=== PATIENT | male | born 1980 | race American Indian/Alaskan Native ===

== ENCOUNTER 2019-10-04 10:57 | Observation (INO) | payer MEDICAID, OTHER ==
[2019-10-04] MEDS ORDERED: Sodium Chloride 0.9% 10 ML Syringe FLUSH PRN (11:02)
[2019-10-04 11:38] LABS: ANION GAP 11.5 mEq/L (7-13)
--- NOTE | 2019-10-04 11:49 | CR ---
EXAMINATION: Chest 2V SEX: Male AGE: 39 years CLINICAL HISTORY: 39-year-old male complaining of shortness of breath (SOB). Comparison CT 15 September 2018. INTERPRETATION: 1. Chronic prominence of cardiac silhouette and proximal pulmonary vascularity unchanged. 2. No new cephalization of flow, alveolar edema or dependent pleural effusion when compared to August 2018 exam. No interstitial Aiden B lines. 3. No new lung mass or hilar lymphadenopathy. 4. No focal lobar pneumonia, atelectasis or collapse. 5. No pneumothorax or pneumomediastinum. Midline tracheal bronchial airway unremarkable. CONCLUSION: No acute new cardiopulmonary abnormality.
[2019-10-04] MEDS ORDERED: cloNIDine 0.1 MG Tab PO ONE (12:16)
--- NOTE | 2019-10-04 12:38 | EDM.PDOC ---
ED HPI GENERAL MEDICAL PROBLEM - General Chief Complaint: Cardiovascular Problem Stated Complaint: ALTRU SENDING OVER Time Seen by Provider: 10/04/19 11:35 Source of Information: Reports: Patient, Provider (Dr. Donaldson), RN, RN Notes Reviewed History Limitations: Reports: No Limitations - History of Present Illness INITIAL COMMENTS - FREE TEXT/NARRATIVE: Patient presents to ER from [facility] with complaint of shortness of breath and elevated troponin at the clinic. Patient states he has been having difficulties with shortness of breath on and off since May of last year. States he gets a cough from time to time, and feels very short of breath at those times. Denies any recent illness, denies any heart problems. Admits to hypertension. Denies lung problems that he is aware of, denies diabetes. Patient denies any recent exposure to COVID-19, states he goes to work and home, and stays away from people mostly. Patient was seen in the clinic on September 26, a nd followed up again today. Blood pressure elevated today 180s over 120s to 130s. Patient was given a Catapres in the clinic which was unsuccessful. Denies any chest pains, nausea, vomiting, diarrhea, fever or chills. Onset: Gradual Treatments LINING IRONER: Reports: Other (see below) Other Treatments LINING IRONER: clonidine, lasix - Related Data Allergies Allergy/AdvReac Type Severity Reaction Status Date / Time No Known Allergies Allergy Verified 10/04/19 11:14 Home Meds: Home Meds Albuterol [Proair HFA] 2 puff INH Q4HR PRN 10/04/19 [History] Furosemide [Lasix] 20 mg PO DAILY 10/04/19 [History] Lisinopril/Hydrochlorothiazide [Zestoretic 10-12.5 mg Tablet] 1 tab PO DAILY 10/04/19 [History] Past Medical History Cardiovascular History: Reports: Hypertension Social & Family History - Family History Family Medical History: Noncontributory - Tobacco Use Smoking Status *Q: Former Smoker Used Tobacco, but Quit: Yes Month/Year Tobacco Last Used: 2019 - Caffeine Use Caffeine Use: Reports: Soda - Recreational Drug Use Recreational Drug Use: No ED ROS GENERAL - Review of Systems Review Of Systems: Comprehensive ROS is negative, except as noted in HPI. ED EXAM, GENERAL - Physical Exam Exam: See Below Exam Limited By: No Limitations General Appearance: Alert, WD/WN, No Apparent Distress Eye Exam: Bilateral Eye: EOMI, Normal Inspection Ears: Normal External Exam, Hearing Grossly Normal Nose: Normal Inspection Throat/Mouth: Normal Inspection, Normal Voice, No Airway Compromise Head: Atraumatic, Normocephalic Neck: Normal Inspection, Supple, Non-Tender, Full Range of Motion Respiratory/Chest: No Accessory Muscle Use, Chest Non-Tender, Decreased Breath Sounds, Crackles, Rhonchi Cardiovascular: Normal Peripheral Pulses, Regular Rate, Rhythm, No Edema, No Gallop, No JVD, No Murmur, No Rub Peripheral Pulses: 2+: Radial (L), Radial (R) GI/Abdominal: Normal Bowel Sounds, Soft, Non-Tender (Male) Exam: Deferred Rectal (Males) Exam: Deferred Back Exam: Normal Inspection, Full Range of Motion, NT Extremities: Normal Inspection, Normal Range of Motion, Non-Tender, Normal Capillary Refill, No Pedal Edema Neurological: Alert, Oriented, CN II-XII Intact, Normal Cognition, Normal Gait, Normal Reflexes, No Motor/Sensory Deficits Psychiatric: Normal Affect, Normal Mood Skin Exam: Warm, Dry, Intact, Normal Color, No Rash Lymphatic: No Adenopathy Course - Vital Signs Last Recorded V/S: Last Vital Signs Temp 99 F 10/04/19 11:09 Pulse 92 10/04/19 11:09 Resp 20 10/04/19 11:09 BP 170/121 H 10/04/19 12:26 Pulse Ox 98 10/04/19 11:09 - Orders/Labs/Meds Orders: Active Orders 24 hr Category Date Time Status Admission Diagnosis [ADT] Stat ADT 10/04/19 13:09 Ordered Admission Status [Patient Status] [ADT] Routine ADT 10/04/19 13:09 Active EKG 12 Lead [EKG Documentation Completion] [RC] STAT Care 10/04/19 11:05 Active EKG Documentation Completion [RC] STAT Care 10/04/19 11:02 Active Peripheral IV Care [RC] . DIRECTED Care 10/04/19 11:05 Active Sodium Chloride 0.9% [Saline Flush] Med 10/04/19 11:02 Active 10 ml FLUSH ASDIRECTED PRN Peripheral IV Insertion Adult [OM.PC] Stat Oth 10/04/19 11:02 Ordered Medication Orders Sodium Chloride (Saline Flush) 10 ml FLUSH ASDIRECTED PRN PRN Reason: Keep Vein Open Last Admin: 10/04/19 11:05 Dose: 10 ml Documented by: JAYLENE Labs: Laboratory Tests 10/04/19 10/04/19 10/04/19 Range/Units 11:07 11:07 11:24 D-Dimer, Quantitative < 100 (0-400) ng/mL Sodium 142 (136-145) mmol/L Potassium 3.5 (3.5-5.1) mmol/L Chloride 104 (98-107) mmol/L Carbon Dioxide 30 (21-32) mmol/L Anion Gap 11.5 (7-13) mEq/L BUN 23 H (7-18) mg/dL Creatinine 1.39 H (0.70-1.30) mg/dL Est Cr Clr Drug Dosing 77.54 mL/min Estimated GFR (MDRD) 57 BUN/Creatinine Ratio 16.5 (No establ ref range) Glucose 103 H (74-99) mg/dL Calcium 8.7 (8.5-10.1) mg/dL Total Bilirubin 0.8 (0.2-1.0) mg/dL AST 39 H (15-37) U/L ALT 72 H (16-63) U/L Alkaline Phosphatase 63 (46-116) U/L Troponin I 0.100 H* (0.000-0.056) ng/mL B-Natriuretic Peptide Cancelled Total Protein 7.7 (6.4-8.2) g/dL Albumin 3.9 (3.4-5.0) g/dL Globulin 3.8 Albumin/Globulin Ratio 1.0 Urine Color Yellow (YELLOW) Urine Appearance Clear (CLEAR) Urine pH 6.0 (5.0-9.0) Ur Specific [place] 1.020 (1.005-1.030) Urine Protein Negative (NEGATIVE) Urine Glucose (UA) Negative (NEGATIVE) Urine Ketones Negative (NEGATIVE) Urine Occult Blood Negative (NEGATIVE) Urine Nitrite Negative (NEGATIVE) Urine Bilirubin Negative (NEGATIVE) Urine Urobilinogen 0.2 (0.2-1.0) mg/dL Ur Leukocyte Esterase Negative (NEGATIVE) Meds: Medications Generic Name Dose Route Start Last Admin Trade Name Freq PRN Reason Stop Dose Admin Sodium Chloride 10 ml 10/04/19 11:02 10/04/19 11:05 Saline Flush FLUSH 10 ml ASDIRECTED PRN Administration Keep Vein Open Discontinued Medications Generic Name Dose Route Start Last Admin Trade Name Freq PRN Reason Stop Dose Admin Clonidine HCl 0.1 mg 10/04/19 12:16 10/04/19 12:26 Catapres PO 10/04/19 12:17 0.1 mg ONETIME ONE Administration Labetalol HCl 20 mg 10/04/19 12:57 10/04/19 13:06 Normodyne IVPUSH 10/04/19 12:58 20 mg ONETIME ONE Administration - Radiology Interpretation Free Text/Narrative:: Chest xray: No acute new cardiopulmonary abnormality See rad report - Re-Assessments/Exams Free Text/Narrative Re-Assessment/Exam: 10/04/19 12:58 Dr. Florence here to evaluate the patient. 10/04/19 13:11 Dr. Florence agreed to admit the patient for observation. Departure - Departure Time of Disposition: 13:14 Disposition: Refer to Observation Reason for Transfer *Q: Other Condition: Fair Clinical Impression: Hypertensive heart disease Qualifiers: Heart failure presence: unspecified whether heart failure present Qualified Code(s): I11.9 - Hypertensive heart disease without heart failure Forms: ED Department Discharge Sepsis Event Note (ED) - Evaluation Sepsis Screening Result: No Definite Risk - Focused Exam Vital Signs: Vital Signs Temp Pulse Resp BP BP Pulse Ox 10/04/19 12:26 170/121 H 10/04/19 11:09 99 F 92 20 187/134 H 98 - My Orders Last 24 Hours: My Active Orders 10/04/19 11:02 EKG Documentation Completion [RC] STAT Sodium Chloride 0.9% [Saline Flush] 10 ml FLUSH ASDIRECTED PRN Peripheral IV Insertion Adult [OM.PC] Stat 10/04/19 11:05 EKG 12 Lead [EKG Documentation Completion] [RC] STAT Peripheral IV Care [RC] . DIRECTED 10/04/19 13:09 Admission Diagnosis [ADT] Stat Admission Status [Patient Status] [ADT] Routine - Assessment/Plan Last 24 Hours: My Active Orders 10/04/19 11:02 EKG Documentation Completion [RC] STAT Sodium Chloride 0.9% [Saline Flush] 10 ml FLUSH ASDIRECTED PRN Peripheral IV Insertion Adult [OM.PC] Stat 10/04/19 11:05 EKG 12 Lead [EKG Documentation Completion] [RC] STAT Peripheral IV Care [RC] . DIRECTED 10/04/19 13:09 Admission Diagnosis [ADT] Stat Admission Status [Patient Status] [ADT] Routine
[2019-10-04] MEDS ORDERED: Labetalol 20 MG/4 ML Syringe IVPUSH ONE (12:57)
[2019-10-04] MEDS ORDERED: Aspirin 81 MG Tab.Chew PO ONE (13:34)
[2019-10-04] MEDS ORDERED: Labetalol 20 MG/4 ML Syringe IVPUSH PRN (13:37)
[2019-10-04] MEDS ORDERED: Heparin Sodium/0.45% NaCl 25,000 UNITS/500 ML BAG IV SCH (13:45)
[2019-10-04] MEDS ORDERED: Docusate Sodium 100 MG Cap PO PRN (13:55)
[2019-10-04] MEDS ORDERED: Ondansetron 4 MG/2 ML SDV IVPUSH PRN (13:55)
[2019-10-04] MEDS ORDERED: oxyCODONE 5 MG Tab PO PRN (13:55)
--- NOTE | 2019-10-04 14:00 | PCM.HP ---
H&P History of Present Illness - General Date of Service: 10/04/19 Admit Problem/Dx: Admission Diagnosis/Problem Admission Diagnosis/Problem Hypertension Source of Information: Patient, Provider (ER) - History of Present Illness Initial Comments - Free Text/Narative: 39-year-old with a history of hypertension. The patient has not been checking his blood pressures lately. Has been on hydrochlorothiazide and DELFIN inhibitor. He has been experiencing episodes of shortness of breath mostly related to activity. Associated with coughing some wheezing. He continues to be a smoker. Prior workup included a CAT scan August 2018 that was described as reactive airway disease with small mediastinal lymph node and granulomatous disease. In the past steroid has helped him. The patient was seen in the clinic a week ago. Chest x-ray was described as CHF Lasix was given. Was diagnosed with reactive airway disease and Medrol dosepak was given. On the day of admission the patient went for follow-up at the clinic. Continue to have symptoms. The troponin was checked and was found to be slightly elevated at 0.13 which is in the indeterminate range. Blood pressure was 177/123 with a heart rate of 104 and the patient was referred to the emergency room. Received clonidine, labetalol in the emergency room Chest Xray is described as no acute cardiopulmonary abnormality - Related Data Allergies/Adverse Reactions: Allergies Allergy/AdvReac Type Severity Reaction Status Date / Time No Known Allergies Allergy Verified 10/04/19 13:32 Home Medications: Home Meds Albuterol [Proair HFA] 2 puff INH Q4HR PRN 10/04/19 [History] Furosemide [Lasix] 20 mg PO DAILY 10/04/19 [History] Lisinopril/Hydrochlorothiazide [Zestoretic 10-12.5 mg Tablet] 1 tab PO DAILY 10/04/19 [History] Past Medical History Cardiovascular History: Reports: Hypertension Respiratory History: Reports: Sleep Apnea, SOB Psychiatric History: Reports: Addiction - Infectious Disease History Infectious Disease History: Reports: None - Past Surgical History Cardiovascular Surgical History: Reports: None Respiratory Surgical History: Reports: None Social & Family History - Family History Family Medical History: Noncontributory - Tobacco Use Smoking Status *Q: Former Smoker Years of Tobacco use: 15 Packs/Tins Daily: 0.5 Used Tobacco, but Quit: Yes Month/Year Tobacco Last Used: August 2019 Second Hand Smoke Exposure: No - Caffeine Use Caffeine Use: Reports: Coffee, Soda, Tea - Recreational Drug Use Recreational Drug Use: No H&P Review of Systems - Review of Systems: Review Of Systems: See Below General: Denies: Fever, Chills Pulmonary: Reports: Shortness of Breath, Wheezing (With activity weeks ago) Cardiovascular: Reports: Chest Pain ("Left sided muscle spasms under the chest, lasting for seconds"). Denies: Edema Gastrointestinal: Denies: Abdominal Pain Genitourinary: Denies: Dysuria, Frequency Musculoskeletal: Denies: Neck Pain Psychiatric: Denies: Confusion Exam - Exam Exam: See Below - Vital Signs Vital Signs: Last Vital Signs Temp 99 F 10/04/19 11:09 Pulse 92 10/04/19 11:09 Resp 20 10/04/19 11:09 BP 170/121 H 10/04/19 12:26 Pulse Ox 98 10/04/19 11:09 Weight: 264 lb 9.6 oz - Exam General: Alert, Oriented Neck: Supple Lungs: Clear to Auscultation, Normal Respiratory Effort Cardiovascular: Regular Rate, Regular Rhythm GI/Abdominal Exam: Normal Bowel Sounds, Soft, Non-Tender Extremities: No Pedal Edema Neuro Extensive - Mental Status: Alert, Oriented x3 - Patient Data Lab Results Last 24 hrs: Laboratory Results - last 24 hr 10/04/19 10/04/19 10/04/19 Range/Units 11:07 11:07 11:24 D-Dimer, Quantitative < 100 (0-400) ng/mL Sodium 142 (136-145) mmol/L Potassium 3.5 (3.5-5.1) mmol/L Chloride 104 (98-107) mmol/L Carbon Dioxide 30 (21-32) mmol/L Anion Gap 11.5 (7-13) mEq/L BUN 23 H (7-18) mg/dL Creatinine 1.39 H (0.70-1.30) mg/dL Est Cr Clr Drug Dosing 77.54 mL/min Estimated GFR (MDRD) 57 BUN/Creatinine Ratio 16.5 (No establ ref range) Glucose 103 H (74-99) mg/dL Calcium 8.7 (8.5-10.1) mg/dL Total Bilirubin 0.8 (0.2-1.0) mg/dL AST 39 H (15-37) U/L ALT 72 H (16-63) U/L Alkaline Phosphatase 63 (46-116) U/L Troponin I 0.100 H* (0.000-0.056) ng/mL B-Natriuretic Peptide Cancelled Total Protein 7.7 (6.4-8.2) g/dL Albumin 3.9 (3.4-5.0) g/dL Globulin 3.8 Albumin/Globulin Ratio 1.0 Urine Color Yellow (YELLOW) Urine Appearance Clear (CLEAR) Urine pH 6.0 (5.0-9.0) Ur Specific [place] 1.020 (1.005-1.030) Urine Protein Negative (NEGATIVE) Urine Glucose (UA) Negative (NEGATIVE) Urine Ketones Negative (NEGATIVE) Urine Occult Blood Negative (NEGATIVE) Urine Nitrite Negative (NEGATIVE) Urine Bilirubin Negative (NEGATIVE) Urine Urobilinogen 0.2 (0.2-1.0) mg/dL Ur Leukocyte Esterase Negative (NEGATIVE) Result Diagrams: 10/04/19 11:07 EKG INTERPRETATION EKG Date: 10/04/19 Rhythm: NSR EKG Interpretation Comments: small lateral ST depression - Problem List (1) Hypertensive urgency SNOMED Code(s): 821933608 ICD Code: I16.0 - HYPERTENSIVE URGENCY Status: Acute Current Visit: Yes (2) Hypertensive heart disease SNOMED Code(s): 20440596 ICD Code: I11.9 - HYPERTENSIVE HEART DISEASE WITHOUT HEART FAILURE Status: Acute Current Visit: Yes Qualifiers: Heart failure presence: unspecified whether heart failure present Qualified Code(s): I11.9 - Hypertensive heart disease without heart failure Problem List Initiated/Reviewed/Updated: Yes Orders Last 24hrs: Active Orders 24 hr Category Date Time Status Admission Diagnosis [ADT] Stat ADT 10/04/19 13:09 Ordered Admission Status [Patient Status] [ADT] Routine ADT 10/04/19 13:09 Active Antiembolic Devices [RC] PER UNIT ROUTINE Care 10/04/19 13:56 Ordered EKG 12 Lead [EKG Documentation Completion] [RC] STAT Care 10/04/19 11:05 Active EKG Documentation Completion [RC] STAT Care 10/04/19 11:02 Active Oxygen Therapy [RC] PRN Care 10/04/19 13:55 Ordered Peripheral IV Care [RC] . DIRECTED Care 10/04/19 11:05 Active Telemetry Monitoring [Cardiac Monitoring] [RC] . Care 10/04/19 13:39 Active DIRECTED Up to Chair [RC] ASDIRECTED Care 10/04/19 13:55 Ordered VTE/DVT Education [RC] PER UNIT ROUTINE Care 10/04/19 13:55 Ordered Vital Signs [RC] Q4H Care 10/04/19 13:55 Ordered 2 Gram Sodium Diet [DIET] Diet 10/04/19 Dinner Ordered Echo Comp wo Cont [US] Routine Exams 10/04/19 13:40 Ordered BASIC METABOLIC PANEL,BMP [CHEM] AM Lab 10/05/19 05:15 Ordered CBC WITH AUTO DIFF [HEME] AM Lab 10/05/19 05:15 Ordered LIPID PANEL [CHEM] AM Lab 10/05/19 05:11 Ordered TROPONIN I [CHEM] AM Lab 10/05/19 05:11 Ordered TROPONIN I [CHEM] Timed Lab 10/04/19 16:00 Ordered TROPONIN I [CHEM] Timed Lab 10/04/19 22:00 Ordered Acetaminophen [Tylenol] Med 10/04/19 13:55 Ordered 650 mg PO Q4H PRN Aspirin Med 10/05/19 08:00 Active 325 mg PO WITHBREAKFAST Docusate Sodium [Colace] Med 10/04/19 13:55 Ordered 100 mg PO BID PRN Heparin Sodium/0.45% NaCl [Heparin 25,000 Units in 1/2 Med 10/04/19 13:45 Ordered NS 500 ML] 25,000 units in 500 ml IV TITRATE Isosorbide Mononitrate [Imdur] Med 10/04/19 13:35 Ordered 30 mg PO ACBREAKFAST Labetalol [Normodyne] Med 10/04/19 13:37 Ordered 20 mg IVPUSH Q4H PRN Metoprolol Tartrate [Lopressor] Med 10/04/19 13:45 Ordered 25 mg PO Q12H Ondansetron [Zofran] Med 10/04/19 13:55 Ordered 4 mg IVPUSH Q4H PRN Sodium Chloride 0.9% [Saline Flush] Med 10/04/19 11:02 Active 10 ml FLUSH ASDIRECTED PRN Sodium Chloride 0.9% [Saline Flush] Med 10/04/19 13:55 Ordered 10 ml FLUSH ASDIRECTED PRN Zolpidem [Ambien] Med 10/04/19 13:55 Ordered 5 mg PO BEDTIME PRN oxyCODONE Med 10/04/19 13:55 Ordered 5 mg PO Q4H PRN Antiembolic Hose [OM.PC] Per Unit Routine Ot 10/04/19 13:55 Ordered Peripheral IV Insertion Adult [OM.PC] Stat Ot 10/04/19 11:02 Ordered Saline Lock Insert [OM.PC] Routine Oth 10/04/19 13:55 Ordered Resuscitation Status Routine Resus Stat 10/04/19 13:55 Ordered Medication Orders Aspirin (Aspirin) 325 mg PO WITHBREAKFAST DWAINE Heparin Sodium/Sodium Chloride (Heparin 25,000 Units In 1/2 Ns 500 Ml) 25,000 units in 500 mls @ 28.805 mls/hr IV TITRATE DWAINE; Protocol Isosorbide Mononitrate (Imdur) 30 mg PO ACBREAKFAST DWAINE Labetalol HCl (Normodyne) 20 mg IVPUSH Q4H PRN PRN Reason: Hypertension Metoprolol Tartrate (Lopressor) 25 mg PO Q12H DWAINE Sodium Chloride (Saline Flush) 10 ml FLUSH ASDIRECTED PRN PRN Reason: Keep Vein Open Last Admin: 10/04/19 11:05 Dose: 10 ml Documented by: JAYLENE Assessment/Plan Comment:: 39-year-old with a history of hypertension. The patient has not been checking his blood pressures lately. Has been on hydrochlorothiazide and DELFIN inhibitor. He has been experiencing episodes of shortness of breath mostly related to activity. Associated with coughing some wheezing. He continues to be a smoker. Prior workup included a CAT scan August 2018 that was described as reactive airway disease with small mediastinal lymph node and granulomatous disease. In the past steroid has helped him. The patient was seen in the clinic a week ago. Chest x-ray was described as CHF Lasix was given. Was diagnosed with reactive airway disease and Medrol dosepak was given. On the day of admission the patient went for follow-up at the clinic. Continue to have symptoms. The troponin was checked and was found to be slightly elevated at 0.13 which is in the indeterminate range. Blood pressure was 177/123 with a heart rate of 104 and the patient was referred to the emergency room. Received clonidine, labetalol in the emergency room Chest Xray is described as no acute cardiopulmonary abnormality Hypertensive urgency With history of hypertension Blood pressure 170s over 130s Troponin elevated Symptomatic shortness of breath Well monitor on telemetry Give further labetalol as needed Start imdur, metoprolol Elevated troponin Likely related to uncontrolled hypertension Well monitor troponins Monitor telemetry Control blood pressure Start aspirin Start heparin weight-based nomogram Obtain echocardiogram Obtain lipid study Will need follow-up with cardiology DVT prophylaxis with heparin weight is nomogram
[2019-10-04] MEDS: Isosorbide Mononitrate 30 MG Tab.ER PO SCH (14:28)
[2019-10-04] MEDS: Metoprolol Tartrate 25 MG Tab PO SCH (14:29)
[2019-10-04] MEDS: Sodium Chloride 0.9% 10 ML Syringe FLUSH PRN (14:31)
[2019-10-04] MEDS ORDERED: Zolpidem 5 MG Tab PO PRN (21:00)
[2019-10-04] MEDS ORDERED: Heparin Sodium 5,000 Units/ML Vial IVPUSH ONE (21:26)
[2019-10-04] MEDS: Acetaminophen 325 MG Tab PO PRN (22:10)
[2019-10-05] MEDS: Metoprolol Tartrate 25 MG Tab PO SCH ×2 (02:22→13:07)
[2019-10-05] MEDS ORDERED: Heparin Sodium 5,000 Units/ML Vial IVPUSH ONE (05:12)
[2019-10-05] MEDS: Isosorbide Mononitrate 30 MG Tab.ER PO SCH (05:59)
[2019-10-05] MEDS ORDERED: Isosorbide Mononitrate 30 MG Tab.ER PO SCH (06:00)
[2019-10-05 07:19] LABS: ANION GAP 9.8 mEq/L (7-13)
[2019-10-05] MEDS: Aspirin 325 MG Tab PO SCH (07:59)
--- NOTE | 2019-10-05 10:55 | PN ---
DATE: 10/05/2019 SUBJECTIVE: Mr. Silvina Alicia is a 39-year-old male with medical history significant for hypertension, admitted to the hospital with complaints of increasing shortness of breath and noted to be in acute congestive heart failure. For the last 24 hours, the patient claims that his symptoms seems to be improved. His blood pressure also improved. Denies any chest pains. No abdominal pain. No nausea. No vomiting. No diarrhea. PHYSICAL EXAMINATION: Vital Signs: Temperature of 97.6, pulse of 76, blood pressure of 132/67, respiratory rate of 19, saturating at 99%. General Appearance: The patient is alert and oriented to time, place, and person. Follows commands spontaneously. Cardiovascular System: S1, S2 heard with normal intensity. No gallops. Respiratory System: Clear to auscultation bilaterally. No wheeze. Mild crepitations at the base. Abdomen: Soft. Bowel sounds positive. Nontender. No rigidity. Extremities: No edema in bilateral lower extremities. Neurology: No gross focal neurological deficit. MEDICATIONS: Medications reviewed. Continue with aspirin 325 mg daily, heparin IV drip, Imdur 30 mg daily, metoprolol 25 mg q.12 hourly, oxycodone every 4 hours as needed for pain. LABORATORY DATA: WBC 12.9, hemoglobin 16.8, hematocrit 51.2, platelet count 186. Sodium 139, potassium 3.8, chloride 102, bicarb 31, BUN 26, creatinine 1.4, troponin 0.056. HDL cholesterol 31, LDL cholesterol 73. ASSESSMENT: 1. Acute congestive heart failure secondary to systolic dysfunction. 2. Hypertensive urgency. PLAN: 1. Acute congestive heart failure. The patient has been increasingly short of breath in the last few weeks. The patient will be started on oral Lasix. The patient had an echocardiogram which shows evidence of decreased ejection fraction of 30% to 35% and also noted to have severe apical hypokinesis with no thrombus suggestive of established apical infarction, probably subacute. The patient denies any ongoing chest pains. We will continue with mild diuresis at this time. 2. Hypertensive urgency. His blood pressure seems to be improved. He is started on Imdur and metoprolol. He is tolerating the medications well. We will further titrate the medication to optimize his blood pressure. 3. Elevated troponins. The patient troponin seems to be trending down at this time. The patient denies any ongoing chest pain. He would benefit from Cardiology consultation as an outpatient and get further evaluation. We will continue with aspirin for now. 4. DVT prophylaxis. We will switch him to subcu Lovenox at this time. We will discontinue the IV heparin drip. [facility] /[id number]
[2019-10-05] MEDS: Acetaminophen 325 MG Tab PO PRN (16:31)
[2019-10-05] MEDS: Sodium Chloride 0.9% 10 ML Syringe FLUSH PRN (20:32)
[2019-10-06] MEDS: Metoprolol Tartrate 25 MG Tab PO SCH (02:06)
[2019-10-06] MEDS: Isosorbide Mononitrate 30 MG Tab.ER PO SCH (06:08)
[2019-10-06] MEDS: Aspirin 325 MG Tab PO SCH (08:39)
[2019-10-06] MEDS ORDERED: Enoxaparin 40 MG/0.4 ML Syringe SUBCUT SCH (09:00)
[2019-10-06] MEDS ORDERED: Carvedilol 6.25 MG Tab PO SCH (09:00)
[2019-10-06 09:51] LABS: ANION GAP 11.3 mEq/L (7-13)
[2019-10-06] MEDS ORDERED: guaiFENesin 100 MG/5 ML Soln 5 ML UD Cup PO PRN (10:00)
--- NOTE | 2019-10-06 10:08 | PCM.DCSUM1 ---
Discharge Summary - Hospital Course Free Text/Narrative:: 39-year-old with a history of hypertension. The patient has not been checking his blood pressures lately. Has been on hydrochlorothiazide and MARTIN inhibitor. He has been experiencing episodes of shortness of breath mostly related to activity. Associated with coughing some wheezing. He continues to be a smoker. Prior workup included a CAT scan August 2018 that was described as reactive airway disease with small mediastinal lymph node and granulomatous disease. In the past steroid has helped him. The patient was seen in the clinic a week ago. Chest x-ray was described as CHF Lasix was given. Was diagnosed with reactive airway disease and Medrol dosepak was given. On the day of admission the patient went for follow-up at the clinic. Continue to have symptoms. The troponin was checked and was found to be slightly elevated at 0.13 which is in the indeterminate range. Blood pressure was 177/123 with a heart rate of 104 and the patient was referred to the emergency room. Received clonidine, labetalol in the emergency room Chest Xray is described as no acute cardiopulmonary abnormality Hypertensive urgency With history of hypertension Blood pressure 170s over 130s improved with IV labetalol controlled with PO regimen Acute systolic chf possible etiology: h/o viral syndrome last year - sob since Troponin minimally elevated - downtrending ECHO: EF 30-35%, with apical wall motion abnormality cont Martin started coreg, asa started lasik, Kdur stop HCTZ Lipid: LDL: 73 - for now hold off on Statin - unless CAD is shown on Cath appt made to f/up with cardiology reactive airway dx. is also possible f/up with pulm testing after card evals Diagnosis: Stroke: No - Discharge Data Discharge Date: 10/06/19 Discharge Disposition: Home, Self-Care 01 Condition: Good - Referral to Home Health Primary Care Physician: PCP None - Discharge Diagnosis/Problem(s) (1) Hypertensive urgency SNOMED Code(s): 650117877 ICD Code: I16.0 - HYPERTENSIVE URGENCY Status: Acute Current Visit: Yes (2) Hypertensive heart disease SNOMED Code(s): 94912001 ICD Code: I11.9 - HYPERTENSIVE HEART DISEASE WITHOUT HEART FAILURE Status: Acute Current Visit: Yes Qualifiers: Heart failure presence: unspecified whether heart failure present Qualified Code(s): I11.9 - Hypertensive heart disease without heart failure (3) Acute systolic (congestive) heart failure SNOMED Code(s): 952687037, 716446309 ICD Code: I50.21 - ACUTE SYSTOLIC (CONGESTIVE) HEART FAILURE Status: Acute Current Visit: Yes - Patient Instructions Diet: Heart Healthy Diet Activity: As Tolerated - Discharge Plan *PRESCRIPTION DRUG MONITORING PROGRAM REVIEWED*: Not Applicable *COPY OF PRESCRIPTION DRUG MONITORING REPORT IN PATIENT ESTHER: Not Applicable Prescriptions/Med Rec: Aspirin 81 mg PO WITHBREAKFAST #30 tablet carvediloL [Coreg] 6.25 mg PO BIDMEALS #60 tablet Potassium Chloride [K-Tab] 10 meq PO DAILY #30 tablet.er lisinopriL [Prinivil] 10 mg PO DAILY #30 tablet Home Medications: Home Meds Albuterol [Proair HFA] 2 puff INH Q4HR PRN 10/04/19 [History] Furosemide [Lasix] 20 mg PO DAILY 10/04/19 [History] Aspirin 81 mg PO WITHBREAKFAST #30 tablet 10/06/19 [Rx] Potassium Chloride [K-Tab] 10 meq PO DAILY #30 tablet.er 10/06/19 [Rx] carvediloL [Coreg] 6.25 mg PO BIDMEALS #60 tablet 10/06/19 [Rx] guaiFENesin [Robitussin] 100 mg PO Q6H PRN cup 10/06/19 [Rx] lisinopriL [Prinivil] 10 mg PO DAILY #30 tablet 10/06/19 [Rx] Oxygen Therapy Mode: Room Air Forms: ED Department Discharge Referrals: PCP,None [Primary Care Provider] - - Discharge Summary/Plan Comment DC Time >30 min.: No - General Info Date of Service: 10/06/19 Subjective Update: Shortness of breath is much better No associated swelling No chest pain. Has been ambulating well. On no oxygen - Review of Systems General: Denies: Fever, Weakness Pulmonary: Reports: Cough. Denies: Shortness of Breath Cardiovascular: Denies: Chest Pain, Edema Gastrointestinal: Denies: Abdominal Pain Neurological: Denies: Confusion - Patient Data Vitals - Most Recent: Last Vital Signs Temp 97.3 F 10/06/19 07:53 Pulse 72 10/06/19 08:47 Resp 16 10/06/19 07:53 BP 136/84 10/06/19 08:47 Pulse Ox 97 10/06/19 07:53 Weight - Most Recent: 263 lb 4.8 oz I&O - Last 24 hours: Intake & Output 10/05/19 10/06/19 10/06/19 22:59 06:59 14:59 Intake Total 120 300 230 Balance 120 300 230 Lab Results - Last 24 hrs: Laboratory Results - last 24 hr 10/05/19 10/06/19 Range/Units 14:08 09:15 APTT 24.1 (22.0-34.0) SEC Sodium 138 (136-145) mmol/L Potassium 4.3 (3.5-5.1) mmol/L Chloride 101 (98-107) mmol/L Carbon Dioxide 30 (21-32) mmol/L Anion Gap 11.3 (7-13) mEq/L BUN 23 H (7-18) mg/dL Creatinine 1.37 H (0.70-1.30) mg/dL Est Cr Clr Drug Dosing 78.67 mL/min Estimated GFR (MDRD) 58 Glucose 104 H (74-99) mg/dL Calcium 9.3 (8.5-10.1) mg/dL Med Orders - Current: Current Medications Acetaminophen (Tylenol) 650 mg PO Q4H PRN PRN Reason: Pain (Mild 1-3)/fever Last Admin: 10/05/19 16:31 Dose: 650 mg Documented by: Aspirin (Aspirin) 325 mg PO WITHBREAKFAST [facility] Last Admin: 10/06/19 08:39 Dose: 325 mg Documented by: Carvedilol (Coreg) 6.25 mg PO BIDMEALS [facility] Last Admin: 10/06/19 08:47 Dose: 6.25 mg Documented by: Docusate Sodium (Colace) 100 mg PO BID PRN PRN Reason: Constipation Enoxaparin Sodium (Lovenox) 40 mg SUBCUT DAILY [facility] Last Admin: 10/06/19 08:39 Dose: Not Given Documented by: Guaifenesin (Robitussin) 100 mg PO Q6H PRN PRN Reason: Cough Labetalol HCl (Normodyne) 20 mg IVPUSH Q4H PRN PRN Reason: Hypertension Lisinopril (Prinivil) 10 mg PO DAILY [facility] Ondansetron HCl (Zofran) 4 mg IVPUSH Q4H PRN PRN Reason: Nausea/Vomiting Oxycodone HCl (Oxycodone) 5 mg PO Q4H PRN PRN Reason: Pain (moderate 4-6) Sodium Chloride (Saline Flush) 10 ml FLUSH ASDIRECTED PRN PRN Reason: Keep Vein Open Last Admin: 10/05/19 20:32 Dose: 10 ml Documented by: Zolpidem Tartrate (Ambien) 5 mg PO BEDTIME PRN PRN Reason: Sleep Last Admin: 10/04/19 22:10 Dose: 5 mg Documented by: Discontinued Medications Aspirin (Aspirin) 324 mg PO ONETIME ONE Stop: 10/04/19 13:35 Last Admin: 10/04/19 14:27 Dose: 324 mg Documented by: Clonidine HCl (Catapres) 0.1 mg PO ONETIME ONE Stop: 10/04/19 12:17 Last Admin: 10/04/19 12:26 Dose: 0.1 mg Documented by: Heparin Sodium (Porcine) (Heparin Sodium) 2,000 units IVPUSH .BOLUS ONE Stop: 10/04/19 21:27 Last Admin: 10/04/19 21:45 Dose: 2,000 units Documented by: Heparin Sodium (Porcine) (Heparin Sodium) 2,000 units IVPUSH ONETIME ONE Stop: 10/05/19 05:13 Last Admin: 10/05/19 05:55 Dose: 2,000 units Documented by: Heparin Sodium/Sodium Chloride (Heparin 25,000 Units In 1/2 Ns 500 Ml) 25,000 units in 500 mls @ 20 mls/hr IV TITRATE DWAINE; Protocol Last Titration: 10/05/19 10:43 Dose: 26.2 mls/hr, 26.2 mls/hr Documented by: Isosorbide Mononitrate (Imdur) 30 mg PO ACBREAKFAST DWAINE Isosorbide Mononitrate (Imdur) 30 mg PO ACBREAKFAST DWAINE Last Admin: 10/06/19 06:08 Dose: 30 mg Documented by: Labetalol HCl (Normodyne) 20 mg IVPUSH ONETIME ONE Stop: 10/04/19 12:58 Last Admin: 10/04/19 13:06 Dose: 20 mg Documented by: Metoprolol Tartrate (Lopressor) 25 mg PO Q12H DWAINE Last Admin: 10/06/19 02:06 Dose: 25 mg Documented by: Sodium Chloride (Saline Flush) 10 ml FLUSH ASDIRECTED PRN PRN Reason: Keep Vein Open Last Admin: 10/04/19 11:05 Dose: 10 ml Documented by: - Exam Quality Assessment: Denies: Supplemental Oxygen General: Reports: Alert, Oriented Neck: Reports: Supple Lungs: Reports: Normal Respiratory Effort, Rhonchi GI/Abdominal Exam: Normal Bowel Sounds, Soft, Non-Tender Back Exam: Reports: Normal Inspection Extremities: No Pedal Edema Skin: Reports: Warm, Dry Psy/Mental Status: Reports: Alert, Normal Affect, Normal Mood
[2019-10-07] MEDS ORDERED: Lisinopril 10 MG Tab PO SCH (11:00)
== END 2019-10-06 13:10 | disposition home or self-care (01) ==
LOC: DL.ED 10:57 → DL.MS 13:09
PROVIDERS: ADMIT Internal Medicine; ATTEND Internal Medicine
DX: I16.0 Hypertensive urgency (principal); I11.0 Hypertensive heart disease with heart failure; I50.21 Acute systolic (congestive) heart failure; J45.909 Unspecified asthma, uncomplicated; Z79.899 Other long term (current) drug therapy; Z79.82 Long term (current) use of aspirin; Z79.51 Long term (current) use of inhaled steroids; Z87.891 Personal history of nicotine dependence
CPT/HCPCS: 36415; 71046; 80048; 80053; 80061; 81003; 84484; 85025; 85379; 85730; 93005; 93306; A9270; J1644; J3490; 96365; 96366; 96374; 96375; 96376; 99285-25; G0378

== ENCOUNTER 2021-11-20 21:02 | Emergency (ER) | payer MEDICAID ==
[2021-11-20] MEDS ORDERED: Furosemide 40 MG Tab PO ONE (21:03)
[2021-11-20 22:15] LABS: ANION GAP 15.1 mEq/L (7-13); CHLORIDE,CL 104 mmol/L (98-107); SODIUM,NA 143 mmol/L (136-145)
[2021-11-20 22:17] LABS: ACETAMINOPHEN 0 ug/mL (10-30 (Therapeutic)); ESTIMATED GFR 54 mL/min (>=60)
[2021-11-21] MEDS ORDERED: Furosemide 40 MG/4 ML VIAL IVPUSH ONE (00:28)
[2021-11-21] MEDS ORDERED: Potassium Chloride 10 MEQ Tab.ER PO ONE (00:37)
[2021-11-21 00:52] LABS: AMPHETAMINES,URINE NEGATIVE (NEGATIVE); BARBITURATES,URINE NEGATIVE (NEGATIVE); BENZODIAZEPINE,URINE NEGATIVE (NEGATIVE); MDMA (ECSTASY), URINE NEGATIVE (NEGATIVE); METHADONE,URINE NEGATIVE (NEGATIVE); METHAMPHETAMINES,URINE NEGATIVE (NEGATIVE); OPIATES,URINE NEGATIVE (NEGATIVE); OXYCODONE,URINE NEGATIVE (NEGATIVE); PHENCYCLIDINE,URINE NEGATIVE (NEGATIVE); TCA,URINE NEGATIVE (NEGATIVE)
[2021-11-21] MEDS ORDERED: Furosemide 40 MG Tab ONE (00:54)
== END 2021-11-21 00:59 | disposition home or self-care (01) ==
LOC: DL.ED 21:02
DX: I11.0 Hypertensive heart disease with heart failure (principal); I50.9 Heart failure, unspecified; F17.210 Nicotine dependence, cigarettes, uncomplicated; Z79.899 Other long term (current) drug therapy; Z20.822 Contact with and (suspected) exposure to COVID-19
CPT/HCPCS: 36415; 71045; 80053; 80143; 80179; 80305; 80307; 81001; 82140; 82150; 83605; 83880; 84484; 85025; 87635; 93005; 96374; 99285; A9270; J1940; 93010; 99283; U0002

== ENCOUNTER 2022-04-08 21:09 | Observation (INO) | payer MEDICAID ==
[2022-04-08] MEDS ORDERED: Furosemide 100 MG/10 ML SDV IVPUSH ONE (21:24)
[2022-04-08 22:08] LABS: ANION GAP 10.9 mEq/L (7-13)
[2022-04-08 22:17] LABS: RESPIRATORY SYNCYTIAL VIR NAA NEGATIVE (NEGATIVE)
[2022-04-08 22:19] LABS: CORONAVIRUS COVID-19 NAA POSITIVE (NEGATIVE)
[2022-04-08] MEDS ORDERED: Nitroglycerin/D5W 25 MG/250 ML BOTTLE IV SCH (22:45)
[2022-04-09] MEDS ORDERED: Acetaminophen 500 MG Tab PO ONE (06:16)
[2022-04-09] MEDS ORDERED: Carvedilol 6.25 MG Tab PO ONE (06:17)
[2022-04-09 06:50] LABS: ANION GAP 8.7 mEq/L (7-13)
[2022-04-09] MEDS ORDERED: Lisinopril 20 MG Tab PO ONE ×2 (07:34→17:18)
[2022-04-09] MEDS ORDERED: hydrALAZINE 20 MG/ML SDV IVPUSH ONE (07:35)
[2022-04-09] MEDS ORDERED: amLODIPine 5 MG Tab PO ONE (07:35)
[2022-04-09] MEDS ORDERED: Sodium Chloride 0.9% 10 ML Syringe FLUSH PRN (09:46)
[2022-04-09] MEDS ORDERED: Acetaminophen 325 MG Tab PO PRN (09:46)
[2022-04-09] MEDS ORDERED: Ondansetron 4 MG Tab.DIS PO PRN (09:46)
[2022-04-09] MEDS ORDERED: Docusate Sodium 100 MG Cap PO PRN (09:46)
[2022-04-09] MEDS ORDERED: Ondansetron 4 MG/2 ML SDV IVPUSH PRN (09:46)
[2022-04-09] MEDS ORDERED: Albuterol 6.7 GM Inhaler INH PRN (09:48)
[2022-04-09] MEDS ORDERED: hydrALAZINE 20 MG/ML SDV IVPUSH PRN (17:18)
[2022-04-09] MEDS ORDERED: Carvedilol 25 MG Tab PO ONE (17:31)
[2022-04-09] MEDS ORDERED: Carvedilol 6.25 MG Tab PO SCH (18:00)
[2022-04-09] MEDS: Sodium Chloride 0.9% 10 ML Syringe FLUSH SCH (20:51)
[2022-04-10 06:52] LABS: ANION GAP 8.9 mEq/L (7-13)
[2022-04-10] MEDS ORDERED: Potassium Chloride 10 MEQ Tab.ER PO SCH ×2 (08:00→09:00)
[2022-04-10] MEDS: Sodium Chloride 0.9% 10 ML Syringe FLUSH SCH (08:30)
[2022-04-10] MEDS ORDERED: Furosemide 20 MG Tab PO SCH (09:00)
[2022-04-10] MEDS ORDERED: amLODIPine 5 MG Tab PO SCH (09:00)
[2022-04-10] MEDS ORDERED: Carvedilol 25 MG Tab PO SCH (09:00)
[2022-04-10] MEDS ORDERED: Furosemide 40 MG Tab PO SCH (09:00)
[2022-04-10] MEDS ORDERED: Lisinopril 20 MG Tab PO SCH ×2 (09:00)
== END 2022-04-10 10:14 | disposition home or self-care (01) ==
LOC: DL.ED 21:09 → DL.MS 04-09 08:39
PROVIDERS: ADMIT Hospitalist; ATTEND Hospitalist
DX: I13.0 Hypertensive heart and chronic kidney disease with heart failure and stage 1 through stage 4 chronic kidney disease, or unspecified chronic kidney disease (principal); I16.0 Hypertensive urgency; I50.23 Acute on chronic systolic (congestive) heart failure; N18.30 Chronic kidney disease, stage 3 unspecified; U07.1 COVID-19; G47.30 Sleep apnea, unspecified; F17.210 Nicotine dependence, cigarettes, uncomplicated; I49.3 Ventricular premature depolarization; Z79.899 Other long term (current) drug therapy
CPT/HCPCS: 0241U; 36415; 71045; 80048; 80053; 83605; 83735; 83880; 84443; 84484; 85025; 86140; 93005; 96374; 99223; 99238; 99285-25; A9270-GY; J0360; J1940; J3490

== ENCOUNTER 2024-02-26 21:18 | Emergency (ER) | payer BC, MEDICAID ==
[2024-02-26] MEDS ORDERED: Sodium Chloride 0.9% 10 ML Syringe FLUSH PRN (21:47)
[2024-02-26] MEDS: Labetalol 20 MG/4 ML Syringe IVPUSH ONE (22:06)
[2024-02-26] MEDS: Sodium Chloride 0.9% 1,000 ML IV ONE (22:06)
[2024-02-26 22:17] LABS: INR 1.1 (0.9-1.2); PTT,PARTIAL THROMBOPLSTIN TIME 24.1 SEC (22.0-34.0)
[2024-02-26 22:20] LABS: BASOPHILS PERCENT AUTO 0.5 % (0.0-1.0); EOSINOPHILS PERCENT AUTO 1.2 % (1.0-3.0); HEMATOCRIT 45.4 % (40.0-54.0); HEMOGLOBIN 15.7 g/dL (14.0-18.0); LYMPHOCYTES PERCENT AUTO 29.2 % (20.5-50.1); MEAN CORPUSCULAR HEMOGLOBIN 36.1 pg (27.0-34.0); MEAN CORPUSCULAR HGB CONC 34.6 g/dL (33.0-35.0); MEAN CORPUSCULAR VOLUME 104.4 fL (80-100); MONOCYTES PERCENT AUTO 11.7 % (2-8); NEUTROPHILS PERCENT AUTO 57.4 % (42.2-75.2); PLATELET COUNT,PLT 78 10^3/uL (150-450); RED BLOOD CELL COUNT 4.35 10^6/uL (4.6-6.2); WHITE BLOOD CELL COUNT,WBC 6.5 10^3/uL (5.0-10.0)
[2024-02-26 22:29] LABS: APPEARANCE,URINE CLEAR (CLEAR); BILIRUBIN,URINE NEGATIVE (NEGATIVE); COLOR,URINE YELLOW (YELLOW); GLUCOSE,URINE 500 (NEGATIVE); KETONES,URINE 15 (NEGATIVE); LEUKOCYTE ESTERASE,URINE NEGATIVE (NEGATIVE); NITRITE,URINE NEGATIVE (NEGATIVE); OCCULT BLOOD,URINE TRACE-INTACT (NEGATIVE); PROTEIN,URINE NEGATIVE (NEGATIVE); UROBILINOGEN,URINE 0.2 mg/dL (0.2-1.0)
[2024-02-26 22:32] LABS: AMPHETAMINES,URINE NEGATIVE (NEGATIVE); BARBITURATES,URINE NEGATIVE (NEGATIVE); BENZODIAZEPINE,URINE NEGATIVE (NEGATIVE); MDMA (ECSTASY), URINE NEGATIVE (NEGATIVE); METHADONE,URINE NEGATIVE (NEGATIVE); METHAMPHETAMINES,URINE NEGATIVE (NEGATIVE); OPIATES,URINE NEGATIVE (NEGATIVE); OXYCODONE,URINE NEGATIVE (NEGATIVE); PHENCYCLIDINE,URINE NEGATIVE (NEGATIVE); TCA,URINE NEGATIVE (NEGATIVE)
[2024-02-26 22:39] LABS: A/G RATIO 0.8; ALBUMIN 3.8 g/dL (3.4-5.0); ANION GAP 18.3 mEq/L (7-13); BUN/CREATININE RATIO 9.7 (No establ ref range); CALCIUM 8.9 mg/dL (8.5-10.1); CREATININE 1.76 mg/dL (0.70-1.30); EST CRCL DRUG DOSING (CG) 58.18 mL/min; POTASSIUM,K 4.3 mmol/L (3.5-5.1); PROTEIN TOTAL,TP 8.3 g/dL (6.4-8.2)
[2024-02-26 22:40] LABS: BACTERIA,URINE FEW /HPF (0-FEW/HPF); EPITHELIAL CELLS,URINE RARE /HPF (NOT SEEN); MUCUS,URINE FEW /LPF (NOT SEEN); WBC,URINE 0-5 /HPF (0-5/HPF)
[2024-02-26 22:43] LABS: HEMOGLOBIN A1C 13.1 % (<5.7)
[2024-02-26 22:55] LABS: LACTIC ACID 2.4 mmol/L (0.4-2.0)
[2024-02-26] MEDS ORDERED: Glucagon,Human Recombinant 1 MG Vial IM PRN (23:26)
[2024-02-26] MEDS ORDERED: 50% Dextrose in Water 50 ML Syringe IVPUSH PRN (23:26)
[2024-02-26] MEDS: Carvedilol 6.25 MG Tab PO ONE (23:58)
[2024-02-26] MEDS: Thiamine 100 MG in Sodium Chloride 0.9% 100 ML IV ONE (23:58)
[2024-02-27] MEDS: Insulin Lispro 100 Units/ML 3 ML Vial SUBCUT ONE ×2 (00:02→01:07)
[2024-02-27 01:02] LABS: FOLIC ACID 5.8 ng/mL (8.6-58.9)
[2024-02-27] MEDS: hydrALAZINE 25 MG Tab PO ONE (01:19)
[2024-02-27] MEDS ORDERED: Insulin Regular, Human 100 Units/ML 10 ML Vial ONE (02:11)
[2024-02-27] MEDS: Insulin Regular, Human 100 Units/ML 3 ML Vial IV ONE (02:16)
[2024-02-27] MEDS: Lisinopril 20 MG Tab PO ONE (03:21)
[2024-02-27] MEDS: glipiZIDE 2.5 MG Tab.ER PO SCH (03:22)
[2024-02-27] MEDS: metFORMIN 500 MG Tab PO ONE (03:22)
== END 2024-02-27 03:56 | disposition home or self-care (01) ==
LOC: DL.ED 21:18
DX: I16.0 Hypertensive urgency (principal); I11.0 Hypertensive heart disease with heart failure; I50.9 Heart failure, unspecified; E11.65 Type 2 diabetes mellitus with hyperglycemia; R79.89 Other specified abnormal findings of blood chemistry; Z86.16 Personal history of COVID-19; F17.210 Nicotine dependence, cigarettes, uncomplicated; Z79.899 Other long term (current) drug therapy
CPT/HCPCS: 36415; 70450; 80053; 80305; 80307; 81001; 82607; 82746; 82947; 83036; 83605; 83735; 84484; 85025; 85610; 85730; 93005; 96361; 96365; 96375; 99285; A9270; J1815; J1920; J3411; J3490; J7030; 93010; 99284

== ENCOUNTER 2025-03-04 16:14 | Emergency (ER) | payer BC ==
[2025-03-04] MEDS ORDERED: Sodium Chloride 0.9% 10 ML Syringe FLUSH PRN (16:37)
[2025-03-04 16:59] LABS: BASOPHILS PERCENT AUTO 0.3 % (0.0-1.0); EOSINOPHILS PERCENT AUTO 1.3 % (1.0-3.0); LYMPHOCYTES PERCENT AUTO 10.9 % (20.5-50.1); MONOCYTES PERCENT AUTO 9.3 % (2-8); NEUTROPHILS PERCENT AUTO 78.2 % (42.2-75.2); PLATELET COUNT,PLT 115 10^3/uL (150-450); RED BLOOD CELL COUNT 4.42 10^6/uL (4.6-6.2); WHITE BLOOD CELL COUNT,WBC 10.2 10^3/uL (5.0-10.0)
[2025-03-04] MEDS: Metoprolol Tartrate 5 MG/5 ML SDV IVPUSH ONE ×2 (17:10→17:55)
[2025-03-04 17:14] LABS: INR 1.2 (0.9-1.2)
[2025-03-04] MEDS: Furosemide 40 MG/4 ML VIAL IVPUSH ONE (17:19)
[2025-03-04 17:21] LABS: ALANINE AMINOTRANSFERASE,ALT 83 U/L (16-63); ASPARTATE AMNIOTRANSFERASE,AST 101 U/L (15-37); BILIRUBIN TOTAL 1.3 mg/dL (0.2-1.0); BLOOD UREA NITROGEN,BUN 14 mg/dL (7-18); CARBON DIOXIDE,CO2 30 mmol/L (21-32); CHLORIDE,CL 106 mmol/L (98-107); CREATININE 1.33 mg/dL (0.70-1.30); GLUCOSE RANDOM 118 mg/dL (70-99); POTASSIUM,K 3.6 mmol/L (3.5-5.1); PROTEIN TOTAL,TP 7.9 g/dL (6.4-8.2); SODIUM,NA 145 mmol/L (136-145)
[2025-03-04 17:26] LABS: B-TYPE NATRIURETIC PEPTIDE,BNP 270 pg/ml (0-100)
[2025-03-04 17:30] LABS: A/G RATIO 0.68; ESTIMATED GFR 67 mL/min (>=60)
[2025-03-04] MEDS: Magnesium Sulfat/D5W 1GM/100ML 1 GM in Premix Bag 1 BAG IV ONE (17:55)
[2025-03-04] MEDS: Calcium Gluconate 10% 1 GM/10 ML SDV IVPUSH ONE (17:55)
[2025-03-04 18:32] LABS: ETHANOL BLOOD MEDICAL < 3 mg/dL (0)
[2025-03-04] MEDS: Heparin Sodium 5,000 Units/ML Vial IVPUSH ONE (18:49)
[2025-03-04] MEDS: Heparin Sodium/0.45% NaCl 25,000 UNITS/500 ML BAG IV SCH (19:05)
== END 2025-03-04 19:40 ==
LOC: DL.ED 16:14
DX: I21.4 Non-ST elevation (NSTEMI) myocardial infarction (principal); I11.0 Hypertensive heart disease with heart failure; I50.9 Heart failure, unspecified; Z86.16 Personal history of COVID-19; Z79.899 Other long term (current) drug therapy
CPT/HCPCS: 36415; 71045; 80053; 80307; 83735; 83880; 84484; 85025; 85610; 85730; 86140; 87428; 93005; 96365; 96367; 96368; 96375; 96376; 99285; A9270; J0612; J0616; J1644; J1938; J2305; J3475; 93010